=== PATIENT | female | born 1945 ===

== ENCOUNTER 2020-12-05 07:01 | Day surgery (SDC) | payer OTHER ==
[~2020-12-05 07:01] MED LIST: NORVASC10 MG PO; VASOTEC20 M1 PO
[2020-12-05] MEDS ORDERED: PERCOCET 5-3251 EACH PO (13:37)
[2020-12-05] MEDS ORDERED: SULFAMETHOXAZO1 EACH PO (13:37)
== END 2020-12-05 18:20 | disposition home or self-care (01) ==
LOC: CIR.AMB 07:01
PROVIDERS: ATTEND Obstetrics & Gynecology Gynecology
DX: N81.11 Cystocele, midline (principal); N81.6 Rectocele; Z20.822 Contact with and (suspected) exposure to COVID-19